=== PATIENT | female | born 1990 | race Caucasian/White ===

== ENCOUNTER 2017-09-11 15:44 | Emergency (ER) | payer OTHER ==
[2017-09-11] MEDS ORDERED: NS 0.9% 1000 ML* 1,000 ML IV ONE (17:18)
[2017-09-11] MEDS ORDERED: Morphine INJ* 2 MG/ML 1 ML CARPUJECT IV ONE (17:18)
[2017-09-11] MEDS ORDERED: Morphine INJ* 2 MG/ML 1 ML CARPUJECT ONE (17:21)
[2017-09-11 17:34] LABS: ABS Basophils 0 10^3/ul (0-0.2); ABS Eosinophils 0 10^3/ul (0-0.6); ABS Lymphocytes 0.4 10^3/ul (1.0-4.8); ABS Monocytes 0.5 10^3/ul (0-0.8); ABS Neutrophils 13.7 10^3/ul (1.5-7.7); ABS Nucleated RBC 0 10^3/ul; Eosinophil % 0 % (0-6); Hematocrit 32 % (35-47); Hemoglobin 11.3 g/dl (12.0-16.0); Mean Corpuscular HGB Conc 35 g/dl (31-36); Mean Corpuscular Hemoglobin 32 pg (27-31); Mean Corpuscular Volume 91 fL (80-97); Mean Platelet Volume 8 um3 (7.4-10.4); Nucleated Red Blood Cells % 0; Platelet Count 171 10^3/ul (150-450); Red Blood Count 3.53 10^6/ul (4.0-5.4); Red Cell Distribution Width 12 % (10.5-15); White Blood Count 14.6 10^3/ul (3.5-10.8)
[2017-09-11 17:50] LABS: EGFR Non-African American 135.8 (>60)
--- NOTE | 2017-09-11 18:27 | RAD ---
INDICATION: Left flank abdominal pain. COMPARISON: There are no prior studies available for comparison. TECHNIQUE: Multiple real-time images of the kidneys were obtained. FINDINGS: The kidneys are normal in size shape and echogenicity. The right kidney measured 10.5 x 4.5 x 4.8 cm and the left kidney measured 11.8 x 6.2 x 5.1 cm. No significant focal abnormality or hydronephrosis is seen. There are bilateral symmetric ureteral vesicle jets. IMPRESSION: NEGATIVE EXAM, NO EVIDENCE FOR HYDRONEPHROSIS.
[2017-09-11] MEDS ORDERED: cefTRIAXone(*) 1 GM in NS 0.9% 50 ML* 50 ML IVPB ONE (18:49)
[2017-09-11 19:02] LABS: Urine Appearance Cloudy; Urine Blood 1+ (Negative); Urine Color Yellow; Urine Ketones 1+ (Negative); Urine Protein Negative (Negative); Urine Specific Gravity 1.006 (1.010-1.030); Urine Urobilinogen Negative (Negative)
[2017-09-11] MEDS ORDERED: Nitrofurantoin Macrocrystals* 100 MG CAP PO ONE ×2 (20:20→20:21)
[2017-09-11] MEDS ORDERED: HYDROcodone/ACETAMIN 5-325 MG* 1 TAB PO ONE (20:25)
--- NOTE | 2017-09-11 21:00 | ED ---
Evelina Linares Thomas, scribed for Bg Barriga MD on 09/11/17 at 2000 . Progress - Progress Note Progress Note: The patient is a sign out from Dr. Rhodes pending urinalysis. I discussed the results with the patient and her family as well as ALVARO Lipscomb. The patient will be sent home with a course of pain medication and macrobid. The patient has close follow-up with [facility]. Course/Dx - Provider Notifications Discussed Care Of Patient With: Travis Borges Time Discussed With Above Provider: 20:11 Instructed by Provider To: Other - I spoke over the phone with ALVARO Lipscomb. I told him the lab results of the patient. He reports that the patient can be treated with outpatient OBGYN follow-up with antibiotics and a short course of pain medication. The documentation as recorded by the Evelina caraballo Thomas accurately reflects the service I personally performed and the decisions made by me, Bg Barriga MD.
[2017-09-11 21:49] VITALS: BP 101/75
--- NOTE | 2017-09-13 09:20 | ED ---
Progress - Progress Note Progress Note: The patient is a sign out from Dr. Rhodes pending urinalysis. I discussed the results with the patient and her family as well as ALVARO Lipscomb. The patient will be sent home with a course of pain medication and macrobid. The patient has close follow-up with [facility]. UPDATE: Patient's preliminary urine culture reveals greater than 100,000 Escherichia coli. She was discharged on Macrobid. Sensitivities pending. ASUNCION FOX, 9:19am, 09/13/2017 Course/Dx - Provider Notifications Time Discussed With Above Provider: 20:11 Instructed by Provider To: Other - I spoke over the phone with ALVARO Lipscomb. I told him the lab results of the patient. He reports that the patient can be treated with outpatient OBGYN follow-up with antibiotics and a short course of pain medication.
--- NOTE | 2017-09-13 11:50 | ED ---
Best Linares Angela, scribed for Nemesio Rhodes MD on 09/11/17 at 1712 . Abdominal Pain/Female - HPI Summary HPI Summary: This pt is a 26 y/o female, currently 24 weeks , presenting to [facility] c/o left flank pain since last night. She describes her flank pain as sharp. Pt additionally notes nausea. She rates her pain 8-9 out of 10 in severity. Pt denies vomiting, constipation, diarrhea. Pt sees a legal support manager at [facility]. - History of Current Complaint Chief Complaint: EDFlankPain Stated Complaint: 24 WKS PREG/LT SIDE PAIN Time Seen by Provider: 09/11/17 17:06 Hx Obtained From: Patient ?: Yes - 24 weeks Onset/Duration: Lasting Hours, Still Present Timing: Hours Severity Currently: Severe Pain Intensity: 8 Pain Scale Used: 0-10 Numeric Location: Flank - left Radiates: No Character: Sharp Aggravating Factor(s): Nothing Alleviating Factor(s): Nothing Associated Signs and Symptoms: Positive: Nausea. Negative: Fever, Vomiting, Diarrhea Allergies/Adverse Reactions: Allergies Allergy/AdvReac Type Severity Reaction Status Date / Time No Known Allergies Allergy Verified 09/11/17 15:56 PMH/Surg Hx/FS Hx/Imm Hx Endocrine/Hematology History: Denies: Hx Diabetes Cardiovascular History: Denies: Hx Hypertension Infectious Disease History: No Infectious Disease History: Denies: Traveled Outside the [place] in Last 30 Days - Family History Known Family History: Positive: Cardiac Disease - paternal grandfather: fatal [place] , Hypertension, Diabetes - Social History Alcohol Use: None Substance Use Type: Reports: None Smoking Status (MU): Never Smoked Tobacco Review of Systems Negative: Fever, Chills Positive: Nausea. Negative: Vomiting, Diarrhea, Other - constipation Positive: flank pain - left All Other Systems Reviewed And Are Negative: Yes Physical Exam - Summary Physical Exam Summary: VITAL SIGNS: Reviewed. GENERAL: Patient is a well-developed and nourished female. Patient is not in any acute respiratory distress. HEAD AND FACE: Normocephalic and atraumatic. EYES: PERRLA, EOMI x 2, No injected conjunctiva. EARS: Hearing grossly intact. Ear canals and tympanic membranes are WNL. MOUTH: Oropharynx within normal limits. NECK: Supple, trachea is midline, no adenopathy, no JVD. CHEST: Symmetric, no tenderness at palpation LUNGS: Clear to auscultation bilaterally. No wheezing or crackles. CVS: RRR, S1 and S2 present, no murmurs or gallops appreciated. ABDOMEN: Soft. Abd is distended to above the umbilicus secondary to . Positive bowel sounds. No rebound no guarding, and no masses palpated. No abdominal bruit or pulsations. Pt has left costovertebral angle tenderness. She has left flank tenderness. EXTREMITIES: FROM in all major joints, no edema, no cyanosis or clubbing. NEURO: Alert and oriented x 3. No acute neurological deficits. Speech is normal. SKIN: Dry and warm Triage Information Reviewed: Yes Vital Signs On Initial Exam: Initial Vitals Temp Pulse Resp BP Pulse Ox 98.7 F 121 17 115/58 100 09/11/17 15:53 09/11/17 15:53 09/11/17 15:53 09/11/17 15:53 09/11/17 15:53 Vital Signs Reviewed: Yes Diagnostics - Vital Signs Vital Signs Temp Pulse Resp BP Pulse Ox 09/11/17 15:53 98.7 F 121 17 115/58 100 - Laboratory Result Diagrams: 09/11/17 17:20 09/11/17 17:20 Lab Statement: Any lab studies that have been ordered have been reviewed, and results considered in the medical decision making process. Abdominal Pain Fem Course/Dx - Course Course Of Treatment: This pt is a 26 y/o female, currently 24 weeks , presenting to [facility] c/o left flank pain since last night. She describes her flank pain as sharp. Pt additionally notes nausea. She rates her pain 8-9 out of 10 in severity. Pt denies vomiting, constipation, diarrhea. [facility]. Test results show WBC of 14.6, slight anemia, sodium of 130, potassium of 3.4, CRP of 77.7. Renal Ultrasound: Negative exam, no evidence for hydronephrosis. Urine is pending. My suspicion is that the pt may have UTI vs renal stone. I discussed pt care with Dr. Borges , Watch And Clock Repairer, who reports yes to Margaret. Therefore, at this point I will sign the pt out to Dr. Barriga to follow up on the urinalysis. Pt is stable. She was given fluids and morphine for the pain. - Diagnoses Provider Diagnoses: UTI vs renal stone - Provider Notifications Discussed Care Of Patient With: Travis Borges Time Discussed With Above Provider: 18:45 Instructed by Provider To: Other - I discussed pt care with Dr. Borges, Watch And Clock Repairer, who reports yes to rocephin. Discharge - Discharge Plan Condition: Stable Disposition: OTHER Discharge Disposition Comment: signed out to Dr. Barriga, pending dispo, awaiting UA. Referrals: Andrey GOMEZ,Shante Castro [Primary Care Provider] - The documentation as recorded by the Best caraballo Angela accurately reflects the service I personally performed and the decisions made by me, Nemesio Rhodes MD.
--- NOTE | 2017-09-14 08:50 | ED ---
Progress - Progress Note Progress Note: The patient is a sign out from Dr. Rhodes pending urinalysis. I discussed the results with the patient and her family as well as ALVARO Lipscomb. The patient will be sent home with a course of pain medication and macrobid. The patient has close follow-up with [facility]. UPDATE: Patient's preliminary urine culture reveals greater than 100,000 Escherichia coli. She was discharged on Macrobid. Sensitivities pending. ASUNCION FOX, 9:19am, 09/13/2017 UPDATE: Patient's final urine culture return. Organism sensitive to Macrobid. No change in treatment at this time. ASUNCION FOX, 8:50 AM 09/14/2017 Course/Dx - Course Course Of Treatment: This pt is a 26 y/o female, currently 24 weeks , presenting to [facility] c/o left flank pain since last night. She describes her flank pain as sharp. Pt additionally notes nausea. She rates her pain 8-9 out of 10 in severity. Pt denies vomiting, constipation, diarrhea. Pt sees a admissions advisor at [facility]. Test results show WBC of 14.6, slight anemia, sodium of 130, potassium of 3.4, CRP of 77.7. Renal Ultrasound: Negative exam, no evidence for hydronephrosis. Urine is pending. My suspicion is that the pt may have UTI vs renal stone. I discussed pt care with Dr. Borges , Financial Services Auditor, who reports yes to Rocephin. Therefore, at this point I will sign the pt out to Dr. Barriga to follow up on the urinalysis. Pt is stable. She was given fluids and morphine for the pain. - Provider Notifications Time Discussed With Above Provider: 18:45 Instructed by Provider To: Other - I discussed pt care with Dr. Borges, Financial Services Auditor, who reports yes to rocephin.
== END 2017-09-11 21:17 | disposition home or self-care (01) ==
LOC: ED 15:44
DX: O23.42 Unspecified infection of urinary tract in pregnancy, second trimester (principal); Z3A.24 24 weeks gestation of pregnancy; R11.0 Nausea; R10.84 Generalized abdominal pain
CPT/HCPCS: 36415; 76775; 80053; 81003; 81015; 83605; 83690; 85025; 86140; 87040; 87077; 87086; 87186; 96374; 96375; 99283; A9270-GY; J0696; J2270